=== PATIENT | male | born 1995 | race American Indian/Alaskan Native ===

== ENCOUNTER 2020-08-08 11:13 | Emergency (ER) | payer BC ==
[2020-08-08 11:26] VITALS: BP 132/77
--- NOTE | 2020-08-08 14:33 | Emergency Department Report ---
ED General Adult HPI - General Chief complaint: Neck Pain/Injury Stated complaint: SWELLING TO NECK Time Seen by Provider: 08/08/20 12:53 Source: patient Mode of arrival: Ambulatory Limitations: No Limitations - History of Present Illness Initial comments: Patient is a 24-year-old male presents emergency room with complaints of left- sided neck swelling that began 2 days ago. He states that he also has a sore throat and discomfort with swallowing. He is still able to tolerate p.o. intake and his secretions. He denies any shortness of breath, fever, nausea, vomiting, diarrhea. He denies any sick contacts or recent travel. He denies any past med ical history. No allergies to medications. - Related Data Previous Rx's Medication Instructions Recorded Last Taken Type Clindamycin [Clindamycin CAP] 450 mg PO TID 7 Days #63 capsule 08/08/20 Unknown Rx Ibuprofen [Motrin 600 MG tab] 600 mg PO Q8H PRN #14 tablet 08/08/20 Unknown Rx Allergies Allergy/AdvReac Type Severity Reaction Status Date / Time No Known Allergies Allergy Unverified 08/08/20 11:22 ED Review of Systems ROS: Stated complaint: SWELLING TO NECK Other details as noted in HPI Comment: All other systems reviewed and negative ED Past Medical Hx - Past Medical History Previous Medical History?: No - Surgical History Past Surgical History?: No - Social History Smoking Status: Never Smoker - Medications Home Medications: Home Medications Medication Instructions Recorded Confirmed Last Taken Type Clindamycin [Clindamycin CAP] 450 mg PO TID 7 Days #63 capsule 08/08/20 Unknown Rx Ibuprofen [Motrin 600 MG tab] 600 mg PO Q8H PRN #14 tablet 08/08/20 Unknown Rx ED Physical Exam - General Limitations: No Limitations General appearance: alert, in no apparent distress - Head Head exam: Present: atraumatic, normocephalic - Eye Eye exam: Present: normal appearance - ENT ENT exam: Present: normal orophraynx, mucous membranes moist, TM's normal bilaterally, normal external ear exam, other (no tonsillar hypertrophy or exudates, uvula is midline, no uvula edema or deviation, no trimus, no facial edema, no tongue elevation, no muffled voice) - Neck Neck exam: Present: full ROM, lymphadenopathy (left posterior cervical LAD, moderate fullness to the left side of the neck, normal swallow reflex, airway is intact, no tracheal deviation, no erythema or skin changes). Absent: m eningismus - Respiratory Respiratory exam: Present: normal lung sounds bilaterally. Absent: respiratory distress, wheezes, rales, rhonchi, stridor, chest wall tenderness, accessory muscle use, decreased breath sounds, prolonged expiratory - Cardiovascular Cardiovascular Exam: Present: regular rate, normal rhythm, normal heart sounds. Absent: systolic murmur, diastolic murmur, rubs, gallop - Neurological Exam Neurological exam: Present: alert, oriented X3 - Psychiatric Psychiatric exam: Present: normal affect, normal mood - Skin Skin exam: Present: warm, dry, intact ED Course Vital Signs 08/08/20 11:24 Temperature 99.0 F Pulse Rate 71 Respiratory 18 Rate Blood Pressure 132/77 O2 Sat by Pulse 99 Oximetry ED Medical Decision Making - Lab Data Result diagrams: 08/08/20 13:55 08/08/20 13:55 Lab Results 08/08/20 08/08/20 08/08/20 Range/Units 13:55 13:55 13:55 WBC 4.5 (4.5-11.0) K/mm3 RBC 5.01 (3.65-5.03) M/mm3 Hgb 15.9 H (11.8-15.2) gm/dl Hct 46.2 H (35.5-45.6) % MCV 92 (84-94) fl MCH 32 (28-32) pg MCHC 34 (32-34) % RDW 12.8 L (13.2-15.2) % Plt Count 163 (140-440) K/mm3 [place] % (Auto) Manager Programming Add Manual Diff Complete Total Counted 100 Seg Neuts % (Manual) 51.0 (40.0-70.0) % Band Neutrophils % 0 % Lymphocytes % (Manual) 33.0 (13.4-35.0) % Reactive Lymphs % (Man) 0 % Monocytes % (Manual) 13.0 H (0.0-7.3) % Eosinophils % (Manual) 1.0 (0.0-4.3) % Basophils % (Manual) 2.0 H (0.0-1.8) % Metamyelocytes % 0 % Myelocytes % 0 % Promyelocytes % 0 % Blast Cells % 0 % Nucleated RBC % Not Reportable Seg Neutrophils # Man 2.3 (1.8-7.7) K/mm3 Band Neutrophils # 0.0 K/mm3 Lymphocytes # (Manual) 1.5 (1.2-5.4) K/mm3 Abs React Lymphs (Man) 0.0 K/mm3 Monocytes # (Manual) 0.6 (0.0-0.8) K/mm3 Eosinophils # (Manual) 0.0 (0.0-0.4) K/mm3 Basophils # (Manual) 0.1 (0.0-0.1) K/mm3 Metamyelocytes # 0.0 K/mm3 Myelocytes # 0.0 K/mm3 Promyelocytes # 0.0 K/mm3 Blast Cells # 0.0 K/mm3 WBC Morphology Not Reportable Hypersegmented Neuts Not Reportable Hyposegmented Neuts Not Reportable Hypogranular Neuts Not Reportable Smudge Cells Not Reportable Toxic Granulation Not Reportable Toxic Vacuolation Not Reportable Dohle Bodies Not Reportable Pelger-Huet Anomaly Not Reportable Malcom Rods Not Reportable Platelet Estimate Consistent w auto Clumped Platelets Not Reportable Plt Clumps, EDTA Not Reportable Large Platelets Not Reportable Giant Platelets Not Reportable Platelet Satelliting Not Reportable Plt Morphology Comment Not Reportable RBC Morphology Normal Dimorphic RBCs Not Reportable Polychromasia Not Reportable Hypochromasia Not Reportable Poikilocytosis Not Reportable Anisocytosis Not Reportable Microcytosis Not Reportable Macrocytosis Not Reportable Spherocytes Not Reportable Pappenheimer Bodies Not Reportable Sickle Cells Not Reportable Target Cells Not Reportable Tear Drop Cells Not Reportable Ovalocytes Not Reportable Helmet Cells Not Reportable Larsen-Kinston Bodies Not Reportable [place] Rings Not Reportable [place] Cells Not Reportable Bite Cells Not Reportable Crenated Cell Not Reportable Elliptocytes Not Reportable Acanthocytes (Spur) Not Reportable Rouleaux Not Reportable Hemoglobin C Crystals Not Reportable Schistocytes Not Reportable Malaria parasites Not Reportable Maxwell Bodies Not Reportable Hem Pathologist Commnt No Sodium 135 L (137-145) mmol/L Potassium 4.0 (3.6-5.0) mmol/L Chloride 97.9 L (98-107) mmol/L Carbon Dioxide 26 (22-30) mmol/L Anion Gap 15 mmol/L BUN 6 L (9-20) mg/dL Creatinine 0.8 (0.8-1.3) mg/dL Estimated GFR > 60 ml/min BUN/Creatinine Ratio 8 % Glucose 85 (75-100) mg/dL Calcium 9.7 (8.4-10.2) mg/dL Total Bilirubin 0.50 (0.1-1.2) mg/dL AST 44 H (5-40) units/L ALT 36 (7-56) units/L Alkaline Phosphatase 45 (35-129) units/L Total Protein 7.5 (6.3-8.2) g/dL Albumin 4.3 (3.9-5) g/dL Albumin/Globulin Ratio 1.3 % TSH 4.220 H (0.270-4.200) mlU/mL Group A Strep Rapid (Negative) 08/08/20 Range/Units Unknown WBC (4.5-11.0) K/mm3 RBC (3.65-5.03) M/mm3 Hgb (11.8-15.2) gm/dl Hct (35.5-45.6) % MCV (84-94) fl MCH (28-32) pg MCHC (32-34) % RDW (13.2-15.2) % Plt Count (140-440) K/mm3 [place] % (Auto) Add Manual Diff Total Counted Seg Neuts % (Manual) (40.0-70.0) % Band Neutrophils % % Lymphocytes % (Manual) (13.4-35.0) % Reactive Lymphs % (Man) % Monocytes % (Manual) (0.0-7.3) % Eosinophils % (Manual) (0.0-4.3) % Basophils % (Manual) (0.0-1.8) % Metamyelocytes % % Myelocytes % % Promyelocytes % % Blast Cells % % Nucleated RBC % Seg Neutrophils # Man (1.8-7.7) K/mm3 Band Neutrophils # K/mm3 Lymphocytes # (Manual) (1.2-5.4) K/mm3 Abs React Lymphs (Man) K/mm3 Monocytes # (Manual) (0.0-0.8) K/mm3 Eosinophils # (Manual) (0.0-0.4) K/mm3 Basophils # (Manual) (0.0-0.1) K/mm3 Metamyelocytes # K/mm3 Myelocytes # K/mm3 Promyelocytes # K/mm3 Blast Cells # K/mm3 WBC Morphology Hypersegmented Neuts Hyposegmented Neuts Hypogranular Neuts Smudge Cells Toxic Granulation Toxic Vacuolation Dohle Bodies Pelger-Huet Anomaly Malcom Rods Platelet Estimate Clumped Platelets Plt Clumps, EDTA Large Platelets Giant Platelets Platelet Satelliting Plt Morphology Comment RBC Morphology Dimorphic RBCs Polychromasia Hypochromasia Poikilocytosis Anisocytosis Microcytosis Macrocytosis Spherocytes Pappenheimer Bodies Sickle Cells Target Cells Tear Drop Cells Ovalocytes Helmet Cells Larsen-Kinston Bodies [place] Rings [place] Cells Bite Cells Crenated Cell Elliptocytes Acanthocytes (Spur) Rouleaux Hemoglobin C Crystals Schistocytes Malaria parasites Maxwell Bodies Hem Pathologist Commnt Sodium (137-145) mmol/L Potassium (3.6-5.0) mmol/L Chloride (98-107) mmol/L Carbon Dioxide (22-30) mmol/L Anion Gap mmol/L BUN (9-20) mg/dL Creatinine (0.8-1.3) mg/dL Estimated GFR ml/min BUN/Creatinine Ratio % Glucose (75-100) mg/dL Calcium (8.4-10.2) mg/dL Total Bilirubin (0.1-1.2) mg/dL AST (5-40) units/L ALT (7-56) units/L Alkaline Phosphatase (35-129) units/L Total Protein (6.3-8.2) g/dL Albumin (3.9-5) g/dL Albumin/Globulin Ratio % TSH (0.270-4.200) mlU/mL Group A Strep Rapid Negative (Negative) - Radiology Data Radiology results: report reviewed CT neck w con INDICATION / CLINICAL INFORMATION: 24 years Male; MAIN. TECHNIQUE: Contiguous thin cut axial images obtained through the neck following IV contrast. Sagittal and coronal reconstructions performed by the technologist. All CT scans at this location are performed u sing CT dose reduction for ALARA by means of automated exposure control. COMPARISON: None available. FINDINGS: MUCOSAL SPACE: There is prominence of the palatine soft tissues which may reflect lymphoid hypertrophy. The findings appear greater on the left extending to involve the nasopharyngeal soft tissues with relative effacement. No definitive focal fluid collections are seen within the palatine soft tissues and correlation be needed given the history. However, there is fluid attenuation within the retropharyngeal soft tissues along the length of the cervical spine measuring 6 to 7 mm in greatest AP dimension at the C4 level. There is no significant peripheral enhancement and this finding is fairly symmetric and may be reactive. Retropharyngeal abscesses typically more irregular with peripheral enhancement though correlation would be a needed. The fluid at results in moderate to degree of narrowing of the airway at the level of the epiglottis which appears appropriate in size. Lymph nodes: Reactive adenopathy is identified, particularly along the left jugular chain with the largest nodes measuring approximately 0.8 cm in greatest short axis dimension along the left jugulodigastric and submitted ventricular regions. There is relative paucity of fat along the cervical fascial planes in this young patient. However, there does appear to be some surrounding inflammatory changes involving the left jugular chain adenopathy. SALIVARY GLANDS: The visualized parotid and submitted ventricular glands demonstrate fairly symmetric attenuation without calcification. THYROID GLAND: There is relative heterogeneous attenuation along the posterior lobe of the right thyroid gland which may be related to the degree of beam hardening artifact at this level. The gland otherwise appears unremarkable. PARANASAL SINUSES: Findings are compatible with smaller retention cysts involving the visualized maxillary sinuses bilaterally. Otherwise, the sinuses are clear. SPINE: No significant abnormality of the cervical spine appreciated. VASCULAR STRUCTURES: Vascular structures are grossly normal in appearance. IMPRESSION: 1. There is fluid attenuation within the retropharyngeal soft tissues which may be reactive though correlation would be needed as detailed above. Additionally, there is relative prominence of the palatine soft tissues, greater on the left with notable left-sided cervical adenopathy, also described above. Signer Name: Vadim Grant MD Signed: 08/08/2020 3:27 PM Workstation Name: [id number] Transcribed By: MR Dictated By: Vadim Grant MD Electronically Authenticated By: Vadim Grant MD Signed Date/Time: 08/08/20 1527 DD/ 1516 TD/TT: - Medical Decision Making Patient is a 24-year-old male presents emergency room with complaints of left- sided neck swelling that began 2 days ago. He states that he also has a sore throat and discomfort with swallowing. He is still able to tolerate p.o. intake and his secretions. He denies any shortness of breath, fever, nausea, vomiting, diarrhea. He denies any sick contacts or recent travel. He denies any past medical history. No allergies to medications. Vitals are stable. On exam: left posterior cervical LAD, moderate fullness to the left side of the neck, normal swallow reflex, airway is intact, no tracheal deviation, no erythema or skin changes, no tonsillar hypertrophy or exudates, uvula is midline, no uvula edema or deviation, no trimus, no facial edema, no tongue elevation, no muffled voice, no stridor. Labs with mild elevation in TSH, otherwise stable. Rapid strep is negative. CT neck with contrast 1. There is fluid attenuation within the retropharyngeal soft tissues which may be reactive though correlation would be needed as detailed above. Additionally, there is relative prominence of the palatine soft tissues, greater on the left with notable left-sided cervical adenopathy, also described above. Discussed patient and results with Dr. El Lynch, ER attending who believes likely due to retropharyngeal cellulitis, does not believe to be a abscess at this time. Advised to give patient IV Decadron, clindamycin, and to send patient home on clindamycin and outpatient follow-up. Patient given prescription for clindamycin and ibuprofen. discussed very strict return precautions with pt. Advised patient to please take medication as prescribed. Increase your water intake. Follow-up with a primary care doctor. Follow-up with a ENT doctor. It is important that you be reexamined within the next 2 to 3 days. Return to emergency room immediately for any new or worsening symptoms as discussed. - Differential Diagnosis Pharyngitis, tonsillitis, abscess, cellulitis, goiter, mass, LAD Critical care attestation.: If time is entered above; I have spent that time in minutes in the direct care of this critically ill patient, excluding procedure time. ED Disposition Clinical Impression: Neck swelling, Sore throat, LAD (lymphadenopathy) Cellulitis Qualifiers: Site of cellulitis: neck Qualified Code(s): L03.221 - Cellulitis of neck Disposition: TO HOME OR SELFCARE Is pt being admited?: No Does the pt Need Aspirin: No Condition: Stable Additional Instructions: please take medication as prescribed. Increase your water intake. Follow-up with a primary care doctor. Follow-up with a ENT doctor. It is important that you be reexamined within the next 2 to 3 days. Return to emergency room immediately for any new or worsening symptoms as discussed. Prescriptions: Clindamycin [Clindamycin CAP] 450 mg PO TID 7 Days #63 capsule Ibuprofen [Motrin 600 MG tab] 600 mg PO Q8H PRN #14 tablet PRN Reason: Pain Referrals: PRIMARY CARE, [Primary Care Provider] - 2-3 Days SHANDA MARTELL MD [Staff Physician] - 2-3 Days [facility] [Provider Group] - 2-3 Days [facility] [Provider Group] - 2-3 Days Time of Disposition: 16:01 Print Language: MALAY
[2020-08-08 14:34] LABS: Hematocrit 46.2 % (35.5-45.6); Hemoglobin 15.9 gm/dl (11.8-15.2); Mean Corpuscular HGB Conc 34 % (32-34); Mean Corpuscular Volume 92 fl (84-94); Platelet Count 163 K/mm3 (140-440); Red Blood Count 5.01 M/mm3 (3.65-5.03); Red Cell Distribution Width 12.8 % (13.2-15.2)
[2020-08-08 14:44] LABS: Alanine Aminotransferase 36 units/L (7-56); Albumin 4.3 g/dL (3.9-5); BUN/Creatinine Ratio 8; Blood Urea Nitrogen 6 mg/dL (9-20); Calcium 9.7 mg/dL (8.4-10.2); Hemolysis Index 25
[2020-08-08 15:16] LABS: Platelet Estimate Consistent w Auto; RBC Morphology Normal; Total Cells Counted 100
--- NOTE | 2020-08-08 15:32 | Cat Scan Report ---
CT neck w con INDICATION / CLINICAL INFORMATION: 24 years Male; MAIN. TECHNIQUE: Contiguous thin cut axial images obtained through the neck following IV contrast. Sagittal and mahan l reconstructions performed by the technologist. All CT scans at this location are performed using CT dose reduction for ALARA by means of automated exposure control. COMPARISON: None available. FINDINGS: MUCOSAL SPACE: There is prominence of the palatine soft tissues which may reflect lymphoid hypertroph y. The findings appear greater on the left extending to involve the nasopharyngeal soft tissues with relative effacement. No definitive focal fluid collections are seen within the palatine soft tissues and correlation be needed given the history. However, there is fluid attenuation within the retrophar yngeal soft tissues along the length of the cervical spine measuring 6 to 7 mm in greatest AP dimensi on at the C4 level. There is no significant peripheral enhancement and this finding is fairly symmetr ic and may be reactive. Retropharyngeal abscesses typically more irregular with peripheral enhancemen t though correlation would be a needed. The fluid at results in moderate to degree of narrowing of th e airway at the level of the epiglottis which appears appropriate in size. Lymph nodes: Reactive adenopathy is identified, particularly along the left jugular chain with the la rgest nodes measuring approximately 0.8 cm in greatest short axis dimension along the left jugulodiga stric and submitted ventricular regions. There is relative paucity of fat along the cervical fascial planes in this young patient. However, there does appear to be some surrounding inflammatory changes involving the left jugular chain adenopathy. SALIVARY GLANDS: The visualized parotid and submitted ventricular glands demonstrate fairly symmetric attenuation without calcification. THYROID GLAND: There is relative heterogeneous attenuation along the posterior lobe of the right thyr oid gland which may be related to the degree of beam hardening artifact at this level. The gland othe rwise appears unremarkable. PARANASAL SINUSES: Findings are compatible with smaller retention cysts involving the visualized maxi llary sinuses bilaterally. Otherwise, the sinuses are clear. SPINE: No significant abnormality of the cervical spine appreciated. VASCULAR STRUCTURES: Vascular structures are grossly normal in appearance. IMPRESSION: 1. There is fluid attenuation within the retropharyngeal soft tissues which may be reactive though co rrelation would be needed as detailed above. Additionally, there is relative prominence of the palati ne soft tissues, greater on the left with notable left-sided cervical adenopathy, also described abov e. Signer Name: Vadim Grant MD Signed: 08/08/2020 3:27 PM Workstation Name: [id number]
[2020-08-08] MEDS ORDERED: CLINDAMYCIN 600 MG/50 mL 600 MG/50 ML BAG IV ONE (15:46)
[2020-08-08] MEDS ORDERED: dexAMETHasone 20 MG/5 ML VIAL IV ONE (15:46)
== END 2020-08-08 17:02 | disposition home or self-care (01) ==
LOC: ED 11:13
DX: R59.1 Generalized enlarged lymph nodes (principal); J02.9 Acute pharyngitis, unspecified; L03.221 Cellulitis of neck; Z79.1 Long term (current) use of non-steroidal anti-inflammatories (NSAID); Z79.899 Other long term (current) drug therapy
CPT/HCPCS: 36415; 70491; 80053; 84443; 85007; 85025; 87116; 87430; 96365; 96375; 99284; J1100; Q9967